=== PATIENT | male | born 1950 | race Caucasian/White ===

== ENCOUNTER 2025-05-09 06:29 | Observation (INO) | payer MEDICARE ==
[2025-05-07 11:42] LABS: BASOPHILS % 0.7 % (0.0-1.0); EOSINOPHILS % 2.8 % (0.0-6.0); LYMPHOCYTES % 12.9 % (18.0-39.1); MONOCYTES % 12.7 % (4.4-11.3); NEUTROPHILS % 70.2 % (38.7-80.0); RED CELL DISTRIBUTION WIDTH 14.5 % (11.7-14.4)
[2025-05-07 11:57] LABS: EST GLOMERULAR FILTRATION RATE 66.0 ML/MIN (>=60)
[2025-05-07 11:59] LABS: INR 0.92
[~2025-05-09] VITALS: Ht 177.8 cm; Wt 94.5 kg
[~2025-05-09 06:29] MED LIST: ASPIRIN81 MG PO; BENICAR20 MG PO; METOPROLOL SUCC25 MG PO; OLMESARTAN; OMEPRAZOLE40 MG PO; TESTOSTERO200 MG/1 M INJ
[2025-05-09] MEDS ORDERED: ROCURONIUM BROMIDE 1 ML IV ONE (08:07)
[2025-05-09] MEDS ORDERED: FENTANYL CITRATE/PF 100MCG/2 ML INJ ONE (08:07)
[2025-05-09] MEDS ORDERED: SEVOFLURANE INHAL SOLN 250 ML PEN BTL ONE (08:07)
[2025-05-09] MEDS ORDERED: PROPOFOL IV EMULSION 10 MG/ML 20 ML VIAL ONE (08:07)
[2025-05-09] MEDS ORDERED: LIDOCAINE HCL 2% LOCAL INJ 5 ML SDV VIAL INJ ONE (08:07)
[2025-05-09] MEDS ORDERED: ACETAMINOPHEN 1000 MG/100 ML 100 ML IV ONE (08:07)
[2025-05-09] MEDS ORDERED: ONDANSETRON HCL INJ 2MG/ML 2ML 2 MG/ML VIAL ONE (09:25)
[2025-05-09] MEDS ORDERED: DEXAMETHASONE SOD PHOS INJ 4 MG/ML SDV ONE (09:25)
[2025-05-09] MEDS ORDERED: EPHEDRINE SULFATE INJ 50 MG/ML VIAL ONE (09:50)
[2025-05-09] MEDS ORDERED: SUGAMMADEX SODIUM 200 MG/2 ML VIAL IV ONE (10:13)
[2025-05-09] MEDS ORDERED: HYDROCODON-ACE1 EA12 PO (10:23)
[2025-05-09] MEDS ORDERED: PROMETHAZINE HCL (IM) 25 MG/ML VIAL IM PRN (10:30)
[2025-05-09] MEDS ORDERED: HYDROMORPHONE 2MG/ML IV PRN (10:30)
[2025-05-09] MEDS ORDERED: ACETAMINOPHEN 325 MG TAB PO PRN (10:30)
[2025-05-09] MEDS ORDERED: OXYCODONE/ACETAMINOPHEN 5-325 1 EACH TABLET PO PRN (10:30)
[2025-05-09] MEDS ORDERED: MAGNESIUM/ALUMINUM/SIMETHICONE 30 ML UDC PO PRN (10:30)
[2025-05-09] MEDS ORDERED: ONDANSETRON HCL INJ 2MG/ML 2ML 2 MG/ML VIAL IV PRN (10:30)
[2025-05-09] MEDS ORDERED: Morphine 10mg syringe 10 MG/ML INJ IM PRN (10:30)
[2025-05-09] MEDS: CEFAZOLIN SODIUM 2 GM ONE (15:03)
[2025-05-09] MEDS: LACTATED RINGER'S 1,000 ML ONE (15:04)
[2025-05-09] MEDS: LACTATED RINGER'S 1,000 ML IV SCH (15:25)
[2025-05-09 15:37] VITALS: BP 122/60; PULSE 77; RESP 18; TEMP 97.1; O2SAT 99
[2025-05-09 16:39] VITALS: BP 134/72; PULSE 69; RESP 18; TEMP 97.9; O2SAT 97
[2025-05-09 20:00] VITALS: BP 131/82; PULSE 78; RESP 18; TEMP 98; O2SAT 97
[2025-05-09] MEDS ORDERED: ZOLPIDEM TARTRATE 5 MG TAB PO PRN (21:00)
[2025-05-09] MEDS: CARISOPRODOL 350 MG TAB PO PRN (23:02)
[2025-05-10] VITALS: BP 138/84; PULSE 78; RESP 17; TEMP 98.1; O2SAT 95
[2025-05-10 04:00] VITALS: BP 130/66; PULSE 70; RESP 18; TEMP 98.1; O2SAT 96
[2025-05-10] MEDS: OLMESARTAN 20 MG TAB PO SCH (09:22)
[2025-05-10 09:23] VITALS: BP 112/74; PULSE 79
[2025-05-10] MEDS: PANTOPRAZOLE SOD 40 MG TABEC PO SCH (09:23)
[2025-05-10] MEDS: METOPROLOL SUCCINATE 25 MG TAB XL PO SCH (09:23)
== END 2025-05-10 10:45 | disposition home or self-care (01) ==
LOC: OR 06:29 → PACU V 10:20 → MED/SURG 16:38
PROVIDERS: ADMIT Neurological Surgery; ATTEND Neurological Surgery
DX: M51.16 Intervertebral disc disorders with radiculopathy, lumbar region (principal); I10 Essential (primary) hypertension; K21.9 Gastro-esophageal reflux disease without esophagitis; Z01.810 Encounter for preprocedural cardiovascular examination; Z01.812 Encounter for preprocedural laboratory examination; Z01.818 Encounter for other preprocedural examination; Z96.643 Presence of artificial hip joint, bilateral
CPT/HCPCS: 36415; 63047; 71046; 72020; 80048; 85025; 85610; 85730; 86850; 86900; 88304; 93005; G0378 ×2; J0131; J0690 ×2; J1100; J2003; J2405; J2470; J2704; J3010; J7121